=== PATIENT | female | born 1975 | race Caucasian/White ===

== ENCOUNTER 2022-02-27 23:32 | Emergency (ER) | payer BC ==
[2022-02-28] MEDS ORDERED: EPIPEN 2-P0.3 MG/0.3 INJ (01:57)
[2022-02-28] MEDS ORDERED: BENADRYL25 MG PO (01:57)
[2022-02-28] MEDS ORDERED: MEDROL DOSEPAK 24 MG PO (01:57)
[2022-02-28] MEDS ORDERED: PEPCID40 MG PO (01:57)
== END 2022-02-28 02:05 | disposition home or self-care (01) ==
LOC: ER1 23:32
DX: T78.40XA Allergy, unspecified, initial encounter (principal); Z91.013 Allergy to seafood
CPT/HCPCS: 96374; 96375; 99282; J2930